=== PATIENT | female | born 1970 | race Caucasian/White ===

== ENCOUNTER 2020-03-18 17:31 | Emergency (ER) | payer OTHER ==
[2020-03-18 19:24] LABS: BASOPHIL 1.4 % (0-2); EOSINOPHIL 3.4 % (0-5); HCT 42.9 % (37.0-47.0); HGB 13.8 g/dl (12.5-16.0); LYMPHOCYTE 31.9 % (15-48); MCH 30.1 pg (25.0-31.0); MCHC 32.2 g/dL (32.0-36.0); MCV 93.7 fL (78.0-100.0); MONOCYTE 9.1 % (0-12); MPV 9.7 fL (6.0-9.5); NEUTROPHIL 53.9 % (41-80); NRBC 0; PLT 239 K/uL (150-400); RBC 4.58 M/uL (4.20-5.40); RDW 13.7 % (11.5-14.0); WBC 7.3 K/uL (4.0-10.5)
[2020-03-18 19:50] LABS: BUN/CREAT RATIO (CALC) 17.1 RATIO; CREATININE 0.82 mg/dL (0.51-0.95); POTASSIUM 3.7 mmol/L (3.5-5.1)
== END 2020-03-18 20:44 | disposition home or self-care (01) ==
LOC: FER 17:31
PROVIDERS: Nurse Practitioner Family
DX: F41.9 Anxiety disorder, unspecified (principal); G43.909 Migraine, unspecified, not intractable, without status migrainosus; Z88.2 Allergy status to sulfonamides
CPT/HCPCS: 36415; 80048; 84443; 85025; 99283

== ENCOUNTER 2020-04-03 09:08 | Emergency (ER) | payer OTHER ==
[2020-04-03 11:42] LABS: BASOPHIL 0.8 % (0-2); EOSINOPHIL 0.4 % (0-5); HCT 42.8 % (37.0-47.0); HGB 14.1 g/dl (12.5-16.0); LYMPHOCYTE 22.8 % (15-48); MCH 30.2 pg (25.0-31.0); MCHC 32.9 g/dL (32.0-36.0); MCV 91.6 fL (78.0-100.0); MONOCYTE 4.1 % (0-12); MPV 9.4 fL (6.0-9.5); NEUTROPHIL 71.7 % (41-80); NRBC 0; PLT 287 K/uL (150-400); RBC 4.67 M/uL (4.20-5.40); RDW 13.7 % (11.5-14.0); WBC 8.5 K/uL (4.0-10.5)
[2020-04-03 11:43] LABS: BILIRUBIN NEGATIVE (NEGATIVE); BLOOD NEGATIVE Ery/uL (NEGATIVE); CLARITY CLEAR (CLEAR); COLOR YELLOW (YELLOW); GLUCOSE (U) NORMAL (NORMAL); LEUKOCYTES NEGATIVE Leu/uL (NEGATIVE); NITRITE NEGATIVE (NEGATIVE); PROTEIN NEGATIVE (NEGATIVE); SPECIFIC GRAVITY 1.025 (1.001-1.030); UROBILINOGEN 0.2 mg/dL (0.2-1.0)
[2020-04-03 11:49] LABS: AMPHETAMINES NEGATIVE (NEGATIVE); BARBITURATES NEGATIVE (NEGATIVE); ECSTASY (MDMA) NEGATIVE (NEGATIVE); MARIJUANA (THC) NEGATIVE (NEGATIVE); METHADONE NEGATIVE (NEGATIVE); OPIATES NEGATIVE (NEGATIVE); OXYCODONE NEGATIVE (NEGATIVE)
[2020-04-03 12:12] LABS: BUN/CREAT RATIO (CALC) 17.6 RATIO; CREATININE 0.74 mg/dL (0.51-0.95); POTASSIUM 3.8 mmol/L (3.5-5.1)
[2020-04-03] MEDS ORDERED: AMOXICILLIN500 MG PO (12:55)
[2020-04-03] MEDS ORDERED: DEBROX15 ML AU (12:58)
== END 2020-04-03 13:28 | disposition home or self-care (01) ==
LOC: FER 09:08
PROVIDERS: Emergency Medicine
DX: G47.00 Insomnia, unspecified (principal); G25.81 Restless legs syndrome; H66.91 Otitis media, unspecified, right ear; F41.9 Anxiety disorder, unspecified; Z88.2 Allergy status to sulfonamides; Z79.899 Other long term (current) drug therapy
CPT/HCPCS: 36415; 80048; 80305; 81003; 84443; 85025; 99283

== ENCOUNTER 2020-06-14 07:35 | Emergency (ER) | payer OTHER ==
[~2020-06-14 07:35] MED LIST: AMOXICILLIN500 MG PO; DEBROX15 ML AU
[2020-06-14] MEDS ORDERED: STROMECTOL3 MG PO (08:09)
== END 2020-06-14 08:24 | disposition home or self-care (01) ==
LOC: FER 07:35
DX: B80 Enterobiasis (principal); Z88.2 Allergy status to sulfonamides
CPT/HCPCS: 99282

== ENCOUNTER 2021-02-24 19:31 | Emergency (ER) | payer OTHER ==
[~2021-02-24 19:31] MED LIST changes: +STROMECTOL3 MG PO
[2021-02-24 20:19] LABS: BASOPHIL 0.8 % (0-2); EOSINOPHIL 1.3 % (0-5); HCT 40.8 % (37.0-47.0); HGB 13.3 g/dl (12.5-16.0); LYMPHOCYTE 12.3 % (15-48); MCHC 32.6 g/dL (32.0-36.0); MCV 92.1 fL (78.0-100.0); MONOCYTE 8.6 % (0-12); NEUTROPHIL 76.7 % (41-80); NRBC 0; PLT 217 K/uL (150-400); RBC 4.43 M/uL (4.20-5.40); RDW 13.6 % (11.5-14.0); WBC 6.3 K/uL (4.0-10.5)
[2021-02-24 20:42] LABS: BUN/CREAT RATIO (CALC) 15.5 RATIO; CREATININE 0.71 mg/dL (0.51-0.95); POTASSIUM 4.1 mmol/L (3.5-5.1)
[2021-02-24 21:02] LABS: INFLUENZA A NAA NEGATIVE (NEGATIVE)
[2021-02-24 21:03] LABS: CORONAVIRUS 2019 SARS-COV-2 POSITIVE (NEGATIVE)
[2021-02-24 21:14] LABS: ALBUMIN 3.4 g/dL (3.4-5.0); BILIRUBIN - DIRECT 0.1 mg/dL (0.00-0.20); BILIRUBIN - TOTAL 0.4 mg/dL (0.2-1.0); GLOBULIN (CALCULATION) 3.4 g/dL; TOTAL PROTEIN 6.8 g/dL (6.4-8.2)
[2021-02-24 21:59] LABS: BILIRUBIN NEGATIVE (NEGATIVE); BLOOD NEGATIVE Ery/uL (NEGATIVE); CLARITY CLEAR (CLEAR); COLOR YELLOW (YELLOW); GLUCOSE (U) NORMAL (NORMAL); LEUKOCYTES NEGATIVE Leu/uL (NEGATIVE); NITRITE NEGATIVE (NEGATIVE); PROTEIN NEGATIVE (NEGATIVE); SPECIFIC GRAVITY 1.025 (1.001-1.030); UROBILINOGEN 0.2 mg/dL (0.2-1.0)
== END 2021-02-25 00:14 | disposition home or self-care (01) ==
LOC: FER 19:31
PROVIDERS: Emergency Medicine; Nurse Practitioner Family
DX: U07.1 COVID-19 (principal); Z88.2 Allergy status to sulfonamides
CPT/HCPCS: 36415; 71275; 80048; 80076; 81003; 83690; 84484; 85025; 85379; 93005; J1885; J7030; Q9967; U0002

== ENCOUNTER 2021-08-04 17:41 | Emergency (ER) | payer OTHER ==
[2021-08-04 18:30] LABS: BASOPHIL 1.3 % (0-2); EOSINOPHIL 2.7 % (0-5); HCT 43.2 % (37.0-47.0); HGB 13.9 g/dl (12.5-16.0); LYMPHOCYTE 32.4 % (15-48); MCH 29.6 pg (25.0-31.0); MCHC 32.2 g/dL (32.0-36.0); MCV 92.1 fL (78.0-100.0); MONOCYTE 6.3 % (0-12); MPV 9.8 fL (6.0-9.5); NRBC 0; PLT 240 K/uL (150-400); RBC 4.69 M/uL (4.20-5.40); RDW 13.4 % (11.5-14.0); WBC 7.4 K/uL (4.0-10.5)
[2021-08-04 18:50] LABS: BUN/CREAT RATIO (CALC) 20.7 RATIO; CREATININE 0.82 mg/dL (0.51-0.95); POTASSIUM 3.9 mmol/L (3.5-5.1)
[2021-08-04 19:58] LABS: BILIRUBIN NEGATIVE (NEGATIVE); BLOOD NEGATIVE Ery/uL (NEGATIVE); CLARITY CLEAR (CLEAR); COLOR YELLOW (YELLOW); GLUCOSE (U) NORMAL (NORMAL); LEUKOCYTES NEGATIVE Leu/uL (NEGATIVE); NITRITE NEGATIVE (NEGATIVE); PROTEIN NEGATIVE (NEGATIVE); UROBILINOGEN 0.2 mg/dL (0.2-1.0)
== END 2021-08-04 21:25 | disposition home or self-care (01) ==
LOC: FER 17:41
PROVIDERS: Nurse Practitioner Family
DX: G43.909 Migraine, unspecified, not intractable, without status migrainosus (principal); R10.2 Pelvic and perineal pain; Z88.0 Allergy status to penicillin; Z88.1 Allergy status to other antibiotic agents
CPT/HCPCS: 36415; 80048; 81003; 85025; J1885; J2405; J7030; Q9967